=== PATIENT | male | born 1995 | race African-American/Black ===

== ENCOUNTER 2020-12-29 00:33 | Emergency (ER) | payer OTHER ==
[~2020-12-29] VITALS: Ht 177.8 cm; Wt 84.8 kg
[2020-12-29 02:32] VITALS: BP 154/105
== END 2020-12-29 03:44 | disposition home or self-care (01) ==
LOC: ER 00:33 → EEVIPCON 00:33 → ER 03:44
DX: J06.9 Acute upper respiratory infection, unspecified (principal); F84.0 Autistic disorder
CPT/HCPCS: 71046